=== PATIENT | female | born 1950 | race Caucasian/White ===

== ENCOUNTER 2017-06-18 12:41 | Emergency (ER) | payer MEDICARE ==
[~2017-06-18] VITALS: Ht 172.7 cm; Wt 77.0 kg
[~2017-06-18 12:41] MED LIST: COZA100T PO; DICL50 PO; DICL75 PO; MONT10 PO; ROBA750T3 PO; VENL75XR PO
[2017-06-18 12:43] VITALS: BP 202/91; PULSE 84; RESP 16; TEMP 98.4; O2SAT 98
[2017-06-18 12:50] VITALS: BP 152/68
[2017-06-18] MEDS ORDERED: LOSA100T PO (13:10)
[2017-06-18] MEDS ORDERED: VENL75XR PO (13:10)
[2017-06-18] MEDS ORDERED: predniSONE 20 MG TAB PO ONE (13:30)
[2017-06-18] MEDS ORDERED: KETOROLAC TROMETHAMINE 60 MG/2 ML (IM) VIAL IM ONE (13:30)
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
[2017-06-18] MEDS ORDERED: TRAM50TA PO (13:49)
[2017-06-18] MEDS ORDERED: PRED20 PO (13:49)
== END 2017-06-18 13:57 | disposition home or self-care (01) ==
LOC: NEPD 12:41
DX: M75.91 Shoulder lesion, unspecified, right shoulder (principal); M19.90 Unspecified osteoarthritis, unspecified site; F41.9 Anxiety disorder, unspecified; I10 Essential (primary) hypertension; Z87.19 Personal history of other diseases of the digestive system; Z88.0 Allergy status to penicillin; Z79.899 Other long term (current) drug therapy
CPT/HCPCS: 96372; 99284; J1885; J7512